=== PATIENT | male | born 1955 ===

== ENCOUNTER → 2016-08-18 06:45 | Day surgery (SDC) | payer MEDICAID ==
[~2016-08-18 06:45] MED LIST: Atracurium* 10 MG/ML 10 ML VIAL ONE; Buffered Lidocaine 1% SYRIN* 3 ML/SYR SYRINGE INTRADERM ONE; DiMENhydriNATE IV* 50 MG/ML VIAL IV PUSH PRN; EPHEDrine (Pressors)* 50 MG/ML VIAL ONE; HYDROcodone/ACETAMIN 5-325 MG* 1 TAB ONE; HYDROcodone/ACETAMIN 5-325 MG* 1 TAB PO PRN; Lidocaine 2% PF* 5 ML VIAL ONE; Ondansetron INJ* 2 MG/ML VIAL IV PRN; Propofol* 10 MG/ML 20 ML BTL IV PUSH ONE; Succinylcholine* 20 MG/ML 10 ML VIAL ONE; ceFAZolin 2 GM PREMIX(*) 2 GM/50 ML BAG IVPB ONE; celeCOXIB CAP* 100 MG ONE; celeCOXIB CAP* 200 MG PO ONE; fentaNYL* 50 MCG/ML 2 ML VIAL (100 MCG VIAL) IV PRN; fentaNYL* 50 MCG/ML 2 ML VIAL (100 MCG VIAL) ONE; oxyCODONE/Acetamin 5/325 MG* TAB PO PRN
--- NOTE | 2016-08-18 10:35 | SURGPN ---
Brief Operative Note - Surgery Procedures: OPERATIVE REPORT PRE-OP: 1. Recurrent left inguinal hernia 2. Right inguinal hernia POST-OP: 1. Recurrent left indirect inguinal hernia 2. Right direct inguinal hernia PROCEDURE: 1. Laparoscopic repair with mesh of recurrent left inguinal hernia 2. Laparoscopic repair with mesh of direct right inguinal hernia SURGEON: MD Desire ANESTHESIA: General with local with Dr. Allen ASST: Dr. Yakov Blake IVF: 1 liter of crystalloid EBL: min SPECIMEN:none DRAIN: none WOUND CLASS:One COMPLICATIONS: none TO PACU
[2016-08-18 12:22] VITALS: BP 151/78
--- NOTE | 2016-08-19 07:56 | OP ---
DATE OF OPERATION: 08/18/16 - [facility] DATE OF : 53 SURGEON: Khang Phipps MD EXTENSION SERVICE AGENT: Gabriel Blake MD ANESTHESIOLOGIST: Dr. Allen. ANESTHESIA: General with local. PRE-OP DIAGNOSIS: 1. Recurrent left inguinal hernia. 2. Right inguinal hernia. POST-OP DIAGNOSES: 1. Recurrent left indirect inguinal hernia. 2. Right direct inguinal hernia. OPERATIVE PROCEDURE: Laparoscopic total extraperitoneal repair of a recurrent left indirect inguinal hernia and a repair of right direct inguinal hernia, both with mesh. SPECIMENS: None. COMPLICATIONS: None. DRAINS: None. WOUND CLASSIFICATION: I. BRIEF HISTORY: Mr. Darron Rush is a 61-year-old gentleman who had undergone an elective left indirect inguinal hernia repair 3 years go with mesh with an open technique, which developed a recurrent left inguinal hernia and is now to undergo an elective repair. Also noted was a right inguinal hernia on physical exam and is to undergo repair of both hernias with laparoscope. Please see the preoperatively dictated history and physical. DESCRIPTION OF PROCEDURE: Written informed consent was obtained. The lower abdomen was marked with indelible ink and preoperative antibiotics were administered. The patient was taken to the operating room and placed in a supine position. Sequential compression devices and a warming blanket were applied. General anesthesia was administered. The Suarez catheter was inserted. The abdomen and both groins were prepped and draped in the usual sterile fashion. Time-out verification was completed. A 0.25% Marcaine was infiltrated at the midline just below the umbilicus. A small transverse incision was made and just to the left of midline, the anterior rectus sheath was divided. The underlying muscle was retracted laterally and the preperitoneal space was entered. The [employer] kidney shaped balloon dissector was then passed inferiorly down the midline until it touched the anterior pubic tubercle. This was then inflated with almost 25 squeezes of the balloon under direct vision of the 10 mm 30-degree scope. Once this was felt to have developed a preperitoneal space on both side, the balloon was deflated and it was removed then replaced with a 12-mm blunt port that was placed into the space and the preperitoneal space was then insufflated into a pressure of 10 mmHg. Next two 5 mm ports were placed. The first several fingerbreadths above the pubic tubercle medially and a second 5 mm port midway between the umbilical and suprapubic ports. Initially dissection was commended at the midline and the pubic tubercle and James ligament on both sides were exposed. We were able to identify the epigastric artery and pedicle on both sides and prevent this from injury throughout the remainder of the case. The right side was addressed first and a direct hernia was identified and this was reduced and the preperitoneal fat was reduced from a direct space hernia and the spermatic cord and vas deferens were identified to prevent it from injury. There appeared to be no evidence of indirect inguinal hernia sac. We developed the space laterally out to the iliac crest and the peritoneal reflection was identified and dissected cephalad in preparation for the mesh placement. Next, the attention was turned to the left side, which was the recurrent side. There was some adherent fat into the direct space, which was taken down using some blunt dissection. Thus, we are able to identify the epigastric pedicle. Once laterally, the space was developed to the iliac crest identifying the iliotibial tract laterally. Here, we are able to identify the spermatic cord and there was indeed an indirect peritoneal sac extending down into the internal ring, which was carefully identified and dissected off the cord structures and the sac was reduced. I did enter the peritoneum laterally and this rent was closed with interrupted several firings of the 5 mm clip dry kiln worker. This did appear to seal the peritoneal rent and although there was some air into the peritoneal cavity, it did not impede our vision in the preperitoneal space. Next, more medially in the direct space on the left was some adherent fat that apparently to the surgical site and this was dissected cephalad once again in preparation for the mesh placement and there did not appear to be a direct hernia on the left. Once these dissections had been complete, we placed a right large sized [employer] Mesh in the preperitoneal space and this was lined up intact to the pubic tubercle, the James ligament, and to the anterior abdominal wall with several closure with metallic auto closure tacker. This covered the direct and indirect space nicely and it was not wrinkled and extended laterally out towards the iliac crest. Likewise, a second left-sided large Bard 3DMax Mesh was placed into the left side and positioned to cover and overlap the pubic tubercle medially as well as the conjoined tendon and fit into place to cover the direct and indirect space and with care taken to make sure that the peritoneum had been reflected cephalad enough that there was no chance for recurrent hernia. This mesh was likewise tacked to the pubic tubercle, conjoined tendon, and with one area to the anterior abdominal wall. Hemostasis was assured throughout both sites of dissection. The preperitoneal space was then deflated under direct vision of the camera. We held the mesh up to assure ourselves that this was becoming adherent to the anterior abdominal wall, which it was. Next, in light of the fact that it had made a peritoneal rent on the left during the dissection, we entered the abdominal cavity through the umbilical incision and replaced the 12 mm blunt port, and insufflated the abdomen. There was appeared that the peritoneal rent had been closed adequately with the stapling device. No bowel was involved. All ports were then removed under direct vision. No bleeding. The posterior sheath and peritoneum were closed with a running 0 Polysorb suture. The anterior rectus sheath at the umbilical incision was closed with interrupted 0 Polysorb suture. The skin at all 3 incision was approximated with subcuticular 4-0 Polysorb suture. Steri-Strips were applied. The patient tolerated the procedure well, was taken to the recovery room in stable condition. [id number]/[facility] #: [id number] MEL[place]
== END | disposition home or self-care (01) ==
LOC: OR 06:45
PROVIDERS: ATTEND Surgery
DX: K40.90 Unilateral inguinal hernia, without obstruction or gangrene, not specified as recurrent (principal); K40.91 Unilateral inguinal hernia, without obstruction or gangrene, recurrent; Z87.891 Personal history of nicotine dependence
CPT/HCPCS: A9270-GY; C1776; C1781; J0330; J0690; J2704; J3010